=== PATIENT | female | born 1980 | race Caucasian/White ===

== ENCOUNTER 2018-09-25 10:05 | Day surgery (SDC) | payer OTHER ==
[~2018-09-25 10:05] MED LIST: CEFAZOLIN 2 GM/50 ML (PMX) 50 ML IVPB; SOD CHLORIDE 0.9% 1,000 ML IV
[2018-09-25] MEDS ORDERED: ISOSULFAN BLUE 1% 5 ML INJ SC ×2 (10:47→14:04)
[2018-09-25] MEDS ORDERED: MIDAZOLAM 1 MG/ML 2 ML INJ (14:09)
[2018-09-25] MEDS ORDERED: PROPOFOL 20 ML (14:09)
[2018-09-25] MEDS ORDERED: LIDOCAINE 2% (SDV) 5 ML INJ (14:09)
[2018-09-25] MEDS ORDERED: ROPIVACAINE 0.2% 20 ML VIAL (14:26)
[2018-09-25] MEDS ORDERED: CEFAZOLIN 1 GM INJ (14:30)
[2018-09-25] MEDS ORDERED: HYDROmorphONE 1 MG/5 ML IV SYRINGE IV (14:30)
[2018-09-25] MEDS ORDERED: FENTAnyl 50 MCG/ML VIAL (14:38)
[2018-09-25] MEDS ORDERED: ONDANSETRON 4 MG INJ (14:38)
[2018-09-25] MEDS: HYDROmorphONE 1 MG/5 ML IV SYRINGE IV (15:26)
== END 2018-09-25 17:17 | disposition home or self-care (01) ==
LOC: SDS 10:05
DX: D24.2 Benign neoplasm of left breast (principal); E03.9 Hypothyroidism, unspecified
CPT/HCPCS: 19120; 88307